=== PATIENT | female | born 1990 | race African-American/Black ===

== ENCOUNTER 2024-05-20 12:03 | Emergency (ER) | payer MEDICAID ==
[~2024-05-20] VITALS: Ht 160 cm; Wt 66.0 kg
[2024-05-20 12:17] VITALS: O2SAT 96
[2024-05-20] MEDS: ACETAMINOPHEN 325MG TABLET PO ONE (13:00)
[2024-05-20] MEDS: METHYLPREDNISOLONE SOD SUCC 40MG/ML (ACT-O-VIAL) IM ONE (13:00)
[2024-05-20] MEDS: KETOROLAC 30MG/ML VIAL IM ONE (13:00)
[2024-05-20] MEDS ORDERED: CYCL5TAB MT (13:11)
[2024-05-20 13:40] VITALS: BP 138/86; PULSE 57; RESP 16; TEMP 37.05852; O2SAT 100
== END 2024-05-20 14:17 ==
LOC: ER 12:47
DX: G57.02 Lesion of sciatic nerve, left lower limb (principal)
CPT/HCPCS: 81025; 96372; 99284; J1885; J2920; Z7610